=== PATIENT | male | born 1965 | race Caucasian/White ===

== ENCOUNTER 2024-11-18 15:38 | Outpatient (CLI) | payer BC, SELFPAY ==
--- NOTE | ~2024-11-18 | XR_ITS ---
XR hip RT min 2V 11/18/2024 16:23 Indication: Right hip pain Procedure: 2 views right hip Comparison: No prior studies for comparison. Findings: There is mild-moderate osteoarthritis of the right hip. No acute fracture or traumatic mariah lignment. No soft tissue abnormality. Impression: 1: Mild-moderate osteoarthritis of the right hip. Reviewed, dictated and finalized at location A. Impression: 1: Mild-moderate osteoarthritis of the right hip.
--- NOTE | ~2024-11-18 | XR_ITS ---
Lumbosacral Spine: AP and lateral views Clinical History: Pain Findings: The normal lordotic curve is maintained. The vertebral bodies and posterior elements are i ntact. The intervertebral disc spaces are preserved. There is moderate facet arthropathy throughout the lumbar spine. The sacroiliac joints are normally outlined. Impression: Moderate facet arthropathy throughout the lumbar spine. Reviewed, dictated and finalized at location . Impression: Moderate facet arthropathy throughout the lumbar spine.
== END 2024-11-18 15:39 | disposition home or self-care (01) ==
DX: M54.50 Low back pain, unspecified (principal); G89.29 Other chronic pain; M25.561 Pain in right knee; M16.11 Unilateral primary osteoarthritis, right hip
CPT/HCPCS: 72100; 73502; 73562